=== PATIENT | male | born 1960 | race Caucasian/White ===

== ENCOUNTER 2021-03-19 11:05 | Outpatient (CLI) | payer OTHER, SELFPAY ==
--- NOTE | 2021-03-19 11:11 | XR_ITS ---
WS: [id number] Lumbar spine, 3 views, 03/19/2021 Clinical Data: LOW BACK PAIN WITHOUT SCIATICA Comparison: Lumbar spine, 09/29/2010. Findings: There is a levoscoliosis. Degenerative arthritic change of all the lumbar vertebral bodies is moderat e. There is degenerative disc narrowing at all levels. No compression fractures are seen. The transverse processes and SI joints are normal. XR/XR lumbar spine 2-3V* [id number] Impression: 1. Levoscoliosis with degenerative arthritis involving lumbar vertebral bodies. 2. Degenerative disc narrowing at all lumbar levels.
== END 2021-03-19 11:06 | disposition home or self-care (01) ==
PROVIDERS: Visit Provider Registered Nurse
DX: M54.5 Low back pain (principal); G89.29 Other chronic pain; M41.86 Other forms of scoliosis, lumbar region
CPT/HCPCS: 72100

== ENCOUNTER 2021-04-14 17:06 | Outpatient (CLI) | payer OTHER, SELFPAY ==
--- NOTE | 2021-04-14 17:16 | MR_ITS ---
WS: [id number] MRI LUMBAR SPINE NONCONTRAST TECHNIQUE: Sagittal T1, T2 and STIR imaging. Axial T1 and T2 imaging. CLINICAL INFORMATION: CHRONIC LOW BACK CASTANEDA COMPARISON: None. FINDINGS: Mild lumbar curve. No acute compression. Disc space narrowing throughout the lumbar spine with disc d esiccation. Disc bulging worse at L2-L3, L3-L4, L4-L5. Prominent dorsal epidural fat in the lumbar sp ine contributes to central canal stenosis. T12-L1: Mild disc bulging with a small central disc protrusion. Spinal canal and foramen are patent. L1-L2: Mild disc bulging with osteophytic ridging. Moderate facet arthropathy. Narrowing of the right greater than left subarticular recess. Mild bilateral foraminal narrowing. L2-L3: Mild disc bulging with slight effacement of ventral thecal sac. Moderate to severe central can al stenosis. Moderate facet arthropathy with ligamentum flavum hypertrophy. Moderate right and mild l eft foraminal narrowing. L3-L4: Slight retrolisthesis L3 on L4. Disc bulging with moderate central canal stenosis and impingem ent traversing L4 nerve roots bilaterally. Moderate facet arthropathy with ligamentum flavum flavum h ypertrophy. Right foraminal protrusion slightly impinges the exiting L3 nerve root. Left foramen is p atent. L4-L5: Disc osteophyte complex with endplate ridging results in moderate to severe central canal sten osis. Prominent epidural fat contributes to stenosis. Moderate facet arthropathy with ligamentum flav um hypertrophy. Severe left foraminal narrowing impinges the exiting left L4 nerve root. Mild right f oraminal narrowing. L5-S1: Disc osteophyte complex with endplate ridging. Slight impingement traversing left S1 nerve higinio t. Moderate facet arthropathy with ligamentum flavum hypertrophy. Moderate left and mild right forami nal narrowing. Visualized pelvic bony structures: Normal. Paravertebral soft tissues: Normal. MR/MR lumbar spine wo con* [id number] IMPRESSION: 1. Lumbar scoliosis convex left. 2. No acute compression fractures. Multilevel degenerative disc disease throug hout the lumbar spine with disc space narrowing and endplate degenerative mcclellan es. 3. Moderate to severe central canal stenosis L2-L3 and L4-L5. Moderate central canal stenosis L3-L4. Prominent epidural fat in combination with facet arthrop athy and ligamentum flavum hypertrophy also contributes to central canal narrow ing. 4. Moderate right L2-3 foraminal narrowing impinges the exiting right L2 nerve root. 5. Moderate to severe left L4-5 foraminal narrowing impinges the exiting left L4 nerve root. 6. Moderate left L5-S1 foraminal narrowing. 7. Moderate facet arthropathy worse at L2-3 and L3-4.
== END 2021-04-14 17:07 | disposition home or self-care (01) ==
LOC: RADSHAW 17:13
PROVIDERS: PCP Family Medicine; Visit Provider Registered Nurse
DX: M54.5 Low back pain (principal); G89.29 Other chronic pain; M15.9 Polyosteoarthritis, unspecified; M47.16 Other spondylosis with myelopathy, lumbar region; M47.816 Spondylosis without myelopathy or radiculopathy, lumbar region
CPT/HCPCS: 72148